=== PATIENT | female | born 1975 | race Caucasian/White ===

== ENCOUNTER 2021-02-19 10:14 | Emergency (ER) | payer SELFPAY ==
[2021-02-19] MEDS ORDERED: NAPROSYN500 MG PO (12:01)
== END 2021-02-19 12:29 | disposition home or self-care (01) ==
LOC: ER1 10:14
DX: S83.91XA Sprain of unspecified site of right knee, initial encounter (principal); X58.XXXA Exposure to other specified factors, initial encounter; Y92.89 Other specified places as the place of occurrence of the external cause; Y99.0 Civilian activity done for income or pay
CPT/HCPCS: 29530; 73564; 99283; J1885